=== PATIENT | female | born 1985 | race African-American/Black ===

== ENCOUNTER 2016-07-04 12:28 | Day surgery (SDC) | payer MEDICAID ==
[~2016-07-04 12:28] MED LIST: DIPHENHYDRAMINE HCL 50 MG/ML VIAL ONE; EPINEPHRINE INJ 1 MG/10 ML DISP.SYRIN ONE; FENTANYL CITRATE INJ/PF 100 MCG/2 ML AMPUL ONE; FLUMAZENIL INJ 0.5 MG/5 ML VIAL IV ONE; GLUCAGON,HUMAN RECOMB 1 MG INJ ONE; MIDAZOLAM 2 MG/2 ML INJ ONE; NALOXONE HCL INJ/PF 0.4 MG/1 ML SDV ONE; ONDANSETRON HCL INJ/PF 4 MG/2 ML SDV ONE; PROMETHAZINE HCL INJ 25 MG/1 ML VIAL ONE
[2016-07-04] MEDS: MIDAZOLAM 2 MG/2 ML INJ ONE ×2 (13:30→13:34)
[2016-07-04] MEDS: FENTANYL CITRATE INJ/PF 100 MCG/2 ML AMPUL ONE ×2 (13:32→13:36)
--- NOTE | 2016-07-04 13:44 | Operative Report ---
Operative Report DATE OF SURGERY: 07/04/16 Operative Report: The risks benefits and alternatives of the procedure explained to the patient in detail and informed consent is obtained that GIF Olympus video scope was inserted into the patient's mouth and hypopharynx the esophagus is identified intubated and insufflated the scope was then advanced through the esophagus stomach and duodenum retroflexion maneuver is done the esophagus stomach and first and second portions of the duodenum examined PREOPERATIVE DIAGNOSIS: Epigastric pain. Dysphagia POSTOPERATIVE DIAGNOSIS: Gastritis status post biopsy rule out Helicobacter pylori OPERATION: EGD with biopsy SURGEON: OMID JORDAN ANESTHESIA: Moderate Sedation - 4 mg of Versed, 75 g of fentanyl. Conscious sedation monitoring to 15 minutes. TISSUE REMOVED OR ALTERED: Gastric mucosal specimens obtained rule out Helicobacter pylori COMPLICATIONS: None. ESTIMATED BLOOD LOSS: none. INTRAOPERATIVE FINDINGS: As noted above. PROCEDURE: Patient tolerated the procedure well. No immediate postprocedure complications are noted. Patient is discharged in good condition. Discharge date 07/04/2016. Discharge diet: Regular. Discharge activity: Regular. 2-3 year follow-up to discuss findings. Patient is instructed to call the office or proceed to the emergency room should there be any further problems or questions. We'll await biopsies.
[2016-07-04 14:48] VITALS: BP 106/65
== END 2016-07-04 14:55 | disposition home or self-care (01) ==
LOC: END 12:28
PROVIDERS: ATTEND Internal Medicine Gastroenterology
PROC: 0DB68ZX Excision of Stomach, Via Natural or Artificial Opening Endoscopic, Diagnostic (ICD-10-PCS; principal; 2016-07-04 12:30)
DX: K21.9 Gastro-esophageal reflux disease without esophagitis (principal); K29.50 Unspecified chronic gastritis without bleeding; J30.1 Allergic rhinitis due to pollen; E66.9 Obesity, unspecified; Z68.30 Body mass index [BMI] 30.0-30.9, adult; Z79.899 Other long term (current) drug therapy
CPT/HCPCS: 43239; 88342 ×2; 88305 ×2; J2250; J3010; J0171; J1200; J1610; J2310; J2405; J2550; J3490

== ENCOUNTER → 2016-08-02 | Outpatient (CLI) | payer MEDICAID ==
[2016-08-02 10:58] LABS: HEMATOCRIT 36.6 % (36.0-47.0); HEMOGLOBIN 12.5 g/dL (12.0-15.5); HGB HCT DIFFERENCE 0.9; MEAN CORPUSCULAR HEMOGLOBIN 31.5 pg (27.0-33.4); MEAN CORPUSCULAR HGB CONC 34.1 g/dL (32.0-36.0); MEAN CORPUSCULAR VOLUME 93 fl (80-97); RED BLOOD COUNT 3.96 10^6/uL (3.72-5.28); RED CELL DISTRIBUTION WIDTH 12.7 % (11.5-14.0)
[2016-08-02 11:17] LABS: ALANINE AMINOTRANSFERASE 25 U/L (9-52); ALBUMIN 3.8 g/dL (3.5-5.0); ALKALINE PHOSPHATASE 40 U/L (38-126); ASPARTATE AMINO TRANSFERASE 16 U/L (14-36); BILIRUBIN,DIRECT 0.3 mg/dL (0.0-0.4); BILIRUBIN,TOTAL 0.6 mg/dL (0.2-1.3); CHOLESTEROL 116.89 mg/dL (0-200); Direct HDL 29 mg/dL (>40); TOTAL PROTEIN 6.6 g/dL (6.3-8.2); TRIGLYCERIDES 63 mg/dL (<150)
[2016-08-02 11:28] LABS: DIRECT LDL 70 mg/dL (<100)
[2016-08-02 12:23] LABS: ANION GAP 13 (5-19); BLOOD UREA NITROGEN 12 mg/dL (7-20); CARBON DIOXIDE 18 mmol/L (22-30); CHLORIDE 113 mmol/L (98-107); CREATININE RESULT 1.17 mg/dL (0.52-1.25); GLUCOSE 89 mg/dL (75-110); POTASSIUM 3.8 mmol/L (3.6-5.0); SODIUM 144.4 mmol/L (137-145)
== END ==
LOC: OD 09:42
PROVIDERS: ATTEND Internal Medicine Cardiovascular Disease
DX: R07.89 Other chest pain (principal); R00.2 Palpitations
CPT/HCPCS: 36415; 80048; 80061; 80076; 83735; 84439; 84443; 85027

== ENCOUNTER 2016-11-18 10:40 | Day surgery (SDC) | payer MEDICAID ==
[~2016-11-18 10:40] MED LIST changes: -DIPHENHYDRAMINE HCL 50 MG/ML VIAL ONE; -EPINEPHRINE INJ 1 MG/10 ML DISP.SYRIN ONE; -FENTANYL CITRATE INJ/PF 100 MCG/2 ML AMPUL ONE; -FLUMAZENIL INJ 0.5 MG/5 ML VIAL IV ONE; -GLUCAGON,HUMAN RECOMB 1 MG INJ ONE; -MIDAZOLAM 2 MG/2 ML INJ ONE; -NALOXONE HCL INJ/PF 0.4 MG/1 ML SDV ONE; -ONDANSETRON HCL INJ/PF 4 MG/2 ML SDV ONE; -PROMETHAZINE HCL INJ 25 MG/1 ML VIAL ONE; +PROPOFOL INJ 200 MG/20 ML VIAL IV ONE
[2016-11-18 12:34] VITALS: BP 105/64
--- NOTE | 2016-11-18 14:09 | Operative Report ---
Operative Report DATE OF SURGERY: 11/18/16 Operative Report: The risks, benefits and alternatives of the procedure including risks of bleeding, perforation requiring surgery are explained to the patient detail and informed consent obtained. Patient was placed in the left lateral decubital position. Timeout was called. Propofol medications administered. A rectal examination was done which did not reveal any masses, tears or fissures. An Olympus videoscope was inserted into the patient's rectum. The scope was then gradually advanced all the way to the cecum. The cecum was identified by the usual anatomical landmarks including the ileocecal valve as well as the appendiceal office. Photodocumentation was obtained. Prep was good. The scope was then sequentially pulled back via the various segments of the colon including the ascending colon, hepatic flexure, transverse colon, splenic flexure, descending colon and finally to the rectosigmoid portions of the colon. Retroflexion maneuver was performed. PREOPERATIVE DIAGNOSIS: Change of bowel habits POSTOPERATIVE DIAGNOSIS: Mild terminal ileitis status post biopsy. Internal hemorrhoids OPERATION: Colonoscopy with biopsy SURGEON: OMID JORDAN ANESTHESIA: LMAC TISSUE REMOVED OR ALTERED: As described above. COMPLICATIONS: None. ESTIMATED BLOOD LOSS: None. INTRAOPERATIVE FINDINGS: Nodular. Terminal ileitis status post biopsy rule out Crohn's disease PROCEDURE: Patient tolerated the procedure well. No immediate postprocedure complications are noted. Patient discharged in good condition. Discharge date 11/18/2016. Discharge diet: Regular. Discharge activity: Regular. 2-3 week follow-up to discuss findings. Patient is instructed to call the office or proceed to the emergency room should there be any further problems or questions. We will wait on pathology.
== END 2016-11-18 12:30 | disposition home or self-care (01) ==
LOC: END 10:40
PROVIDERS: ATTEND Internal Medicine Gastroenterology
PROC: 0DBB8ZX Excision of Ileum, Via Natural or Artificial Opening Endoscopic, Diagnostic (ICD-10-PCS; principal; 2016-11-18 12:30)
DX: K52.9 Noninfective gastroenteritis and colitis, unspecified (principal); K64.8 Other hemorrhoids; K21.9 Gastro-esophageal reflux disease without esophagitis; E66.9 Obesity, unspecified; G93.2 Benign intracranial hypertension; Z68.32 Body mass index [BMI] 32.0-32.9, adult; Z79.899 Other long term (current) drug therapy
CPT/HCPCS: 45380; 88305 ×2; J2704; 810

== ENCOUNTER → 2016-11-22 | Outpatient (CLI) | payer MEDICAID | LOC: OD 16:10 | PROVIDERS: ATTEND Internal Medicine Cardiovascular Disease | DX: N91.2 Amenorrhea, unspecified (principal) | CPT/HCPCS: 36415; 84703 ==

== ENCOUNTER → 2016-11-26 | Outpatient (CLI) | payer MEDICAID ==
--- NOTE | 2016-11-28 08:35 | RADIOLOGY REPORT ---
STRESS TEST REPORT PATIENT NAME: MARGIE SMITH ROOM#: DATE OF SERVICE: 11/26/2016 AGE: 31Y ORDER#: [id number] REFERRING MD: MUSA PRESLEY M.D. INDICATION: Assess chest pain. Chest pain reproduced on an EKG treadmill stress test, but no ST changes. CLINICAL HISTORY: This 41-year-old female with no known coronary artery disease is currently complaining of chest pain and chest tightness and chest pressure. Current symptomatology includes chest pain today. PROCEDURE PERFORMED: Rest/stress single-isotope Cardiolite SPECT imaging with exercise stress and gated SPECT imaging. REPORT The patient performed treadmill exercise using a standard Ed protocol completing 10 mets and an estimated work load of 11 mets. She exercised to a peak heart rate of 184, test terminated due to fatigue. The resting heart rate was 82 BPM and increased to 184 BPM at peak exercise, this is 92% of the maximum predicted heart rate. The blood pressure response to exercise was normal, resting blood pressure was 99/64, at peak exercise blood pressure was 128/55. The patient complained of right upper chest pains 1/5 in intensity prior to exercise. During exercise, her chest pain waxed and waned including going from the right upper chest to the center chest and then with some radiation into the left upper arm, but with continuing exercise and particularly at peak exercise, she had no chest pain complaint. Resting 12-lead EKG showed normal sinus rhythm at [address] changes are seen. At peak exercise, no abnormal ST changes were seen. Myocardial perfusion imaging was performed at rest 60 minutes following the injection of 12.97 mCi of Cardiolite. At peak exercise, the patient was injected with 37.7 mCi of Cardiolite. Gated post-stress tomographic imaging was performed 60 minutes after stress. FINDINGS: The overall quality of the study is good. Left ventricular cavity is noted to be normal in size in both the rest and stress studies. TID ratio was 0.93 and normal. Breast attenuation noted on both rest and stress images, attention correction software used. SPECT images showed no exercise-induced reversible ischemia in stress and rest images. No fixed perfusion defects either. Gated SPECT imaging showed normal motion contraction of all LV segments. Left ventricular ejection fraction was calculated to be 57%. IMPRESSION: Myocardial perfusion imaging is normal. Despite the patient's atypical waxing and waning chest pains in different locations from right upper chest to center retrosternal chest, there were no EKG changes to suggest myocardial ischemia. There is no evidence of exercise-induced reversible ischemia seen in the LV segments and no fixed perfusion defects. Overall left ventricular systolic function is normal at 57%. No regional wall motion abnormality was seen. No prior stress test for comparison. INTERPRETING PHYSICIAN: MUSA PRESLEY M.D. /: [id number] TT: [id number] ID: [id number] /: [id number] TD: 0930 JOB: [id number] cc:MUSA PRESLEY M.D. > MTDD
== END ==
LOC: RAD 06:20
PROVIDERS: ATTEND Internal Medicine Cardiovascular Disease
DX: R07.89 Other chest pain (principal)
CPT/HCPCS: 93017; 78452; A9500; Q9969

== ENCOUNTER 2017-11-04 07:03 | Day surgery (SDC) | payer MEDICAID ==
--- NOTE | 2017-10-28 22:11 | EKG REPORT ---
SEVERITY:- OTHERWISE NORMAL ECG - SINUS RHYTHM LEFT AXIS DEVIATION BORDERLINE T WAVE ABNORMALITIES : Confirmed by: Wilfrido Corbett 28-Oct-2017 22:10:44
[~2017-11-04 07:03] MED LIST changes: +LACTATED RINGERS 1000 ML IV PRN; +LIDOCAINE 0.5% INJ-PF (5 MG/ML) 50 ML SDV SUBCUT PRN; -PROPOFOL INJ 200 MG/20 ML VIAL IV ONE
[2017-11-04] MEDS ORDERED: FENTANYL CITRATE INJ/PF 100 MCG/2 ML AMPUL ONE (08:05)
[2017-11-04] MEDS ORDERED: LIDOCAINE 2% INJ-PF (20 MG/ML) 10 ML AMPUL ONE (08:05)
[2017-11-04] MEDS ORDERED: MIDAZOLAM 2 MG/2 ML INJ ONE (08:05)
[2017-11-04] MEDS ORDERED: ONDANSETRON HCL INJ/PF 4 MG/2 ML SDV ONE (08:06)
[2017-11-04] MEDS ORDERED: PROPOFOL INJ 200 MG/20 ML VIAL IV ONE (08:06)
[2017-11-04] MEDS ORDERED: PROMETHAZINE HCL INJ 25 MG/1 ML VIAL IV PRN ×2 (08:43)
[2017-11-04] MEDS ORDERED: MEPERIDINE HCL/PF INJ 25 MG/1 ML DISP.SYRIN IV PRN (08:43)
[2017-11-04] MEDS ORDERED: DIPHENHYDRAMINE HCL 50 MG/ML VIAL IV PRN (08:43)
[2017-11-04] MEDS ORDERED: ONDANSETRON HCL INJ/PF 4 MG/2 ML SDV IV PRN (08:43)
[2017-11-04] MEDS ORDERED: FENTANYL CITRATE INJ/PF 100 MCG/2 ML AMPUL IV PRN ×3 (08:43)
--- NOTE | 2017-11-04 08:47 | Discharge Summary ---
Discharge Summary (SDC) - Discharge Final Diagnosis: reflux, gastritis Date of Surgery: 11/04/17 Discharge Date: 11/04/17 Condition: Stable Referrals: ZEESHAN RODRIGUEZ DO [Primary Care Provider] - Discharge Diet: As Tolerated Respiratory Treatments at Home: Deep Breathing/Coughing, Incentive Spirometer Discharge Activity: Slowly Increase Activity Home Care Assistance: None Needed
--- NOTE | 2017-11-04 08:53 | Operative Report ---
Nonrecallable Operative Report DATE OF SURGERY: 11/04/17 PREOPERATIVE DIAGNOSIS: Reflux and abdominal pain POSTOPERATIVE DIAGNOSIS: 1. Mild gastritis. 2. No evidence of large hiatal hernia on EGD. OPERATION: EGD with biopsy SURGEON: ZACARIAS MILES ANESTHESIA: LMAC TISSUE REMOVED OR ALTERED: 1. Antrum. 2. Distal esophagus COMPLICATIONS: None apparent ESTIMATED BLOOD LOSS: Minimal PROCEDURE: Drains/implants: None. Procedure in detail: After informed consent was obtained, the patient was laid in the left lateral decubitus position. The endoscope was passed down the oropharynx, down the esophagus, and into the stomach. Immediately there was noted to be petechiae in the antrum. This was consistent with mild gastritis. Biopsy was taken in the antrum for pathology. The scope was pushed through the pylorus into the first and second portions of the duodenum. The duodenum appeared normal. The scope was pulled back into the gastric body. A retroflexion maneuver was performed. There was no evidence of a large hiatal hernia. The scope was then withdrawn into the distal esophagus. The Z line appeared normal. Biopsy was taken at the distal esophagus for pathologic examination. There was no significant ulceration within the distal esophagus. The scope was then pulled up the remainder of the esophagus. The esophagus was smooth in contour without masses, lesions, ulcerations, bleeding, or other abnormality. The scope was then removed from the patient's oropharynx, and the procedure was concluded. All sponge, instrument, and needle counts were correct 2. Condition: Stable.
[2017-11-04 10:56] VITALS: BP 107/65
== END 2017-11-04 09:55 | disposition home or self-care (01) ==
LOC: OROUT 07:03
PROVIDERS: ATTEND Surgery
DX: K29.50 Unspecified chronic gastritis without bleeding (principal); K21.0 Gastro-esophageal reflux disease with esophagitis; K44.9 Diaphragmatic hernia without obstruction or gangrene; G93.2 Benign intracranial hypertension; M79.7 Fibromyalgia; R00.2 Palpitations; Z88.1 Allergy status to other antibiotic agents; Z79.899 Other long term (current) drug therapy
CPT/HCPCS: 43239; 93005; 36415; 84132; 81025; 88342 ×2; 88305 ×2; 93010; J2250; J3010; J2405; J2704; J3490; 731

== ENCOUNTER → 2017-11-19 | Outpatient (CLI) | payer MEDICAID ==
--- NOTE | 2017-11-19 09:51 | RADIOLOGY REPORT (SQ) ---
EXAM DESCRIPTION: BARIUM SWALLOW ESOPHAGUS COMPLETED DATE/TIME: 11/19/2017 8:40 am REASON FOR STUDY: GERD (K21.9), DIAPHRAGMATIC HERNIA W/O OBSTRUCTION (K44.9) K21.9 GASTRO-ESOPHAGEA L REFLUX DISEASE WITHOUT ESOPHAGITIS K44.9 DIAPHRAGMATIC HERNIA WITHOUT OBSTRUCTION OR GANGRENE COMPARISON: None. TECHNIQUE: Under fluoroscopic guidance, patient ingested effervescent granules followed by thick and thin barium. Fluoroscopic spot images and routine radiographic images acquired and stored on PACS. 12 MM BARIUM TABLET GIVEN: Yes. No significant delay in passage. LIMITATIONS: None. FLUOROSCOPY TIME: FLUORO TIME: 1 minutes 5 seconds 6 series of digital images saved to PACS. FINDINGS: NEUROMUSCULAR COORDINATION OF SWALLOW: Normal. No aspiration. ESOPHAGEAL MOTILITY: Normal peristalsis. No esophageal spasm. ESOPHAGEAL MUCOSA: Normal mucosa without masses or ulceration. GASTRO-ESOPHAGEAL JUNCTION: Tiny sliding hiatal hernia. Unprovoked gastroesophageal reflux to the ce rvical esophagus. No distal esophageal stricture or mucosal abnormality NON-GI TRACT STRUCTURES: No significant finding. OTHER: No other significant finding. IMPRESSION: Small sliding hiatal hernia with gastroesophageal reflux COMMENT: Quality ID [id number]: Final reports for procedures using fluoroscopy that document radiation exp osure indices, or exposure time and number of fluorographic images (if radiation exposure indices are not available) TECHNICAL DOCUMENTATION: JOB ID: [id number] [employer]- All Rights Reserved Reading location - IP/workstation name: [email or web address]
== END ==
LOC: RAD 07:54
PROVIDERS: ATTEND Surgery
DX: K21.9 Gastro-esophageal reflux disease without esophagitis (principal); K44.9 Diaphragmatic hernia without obstruction or gangrene
CPT/HCPCS: 74220

== ENCOUNTER → 2018-08-20 | Outpatient (CLI) | payer MEDICAID ==
--- NOTE | 2018-08-21 11:39 | RADIOLOGY REPORT (SQ) ---
EXAM DESCRIPTION: NM THYROID SCAN AND UPTAKE COMPLETED DATE/TIME: 08/21/2018 10:34 am REASON FOR STUDY: THYROID NODULE E04.1 NONTOXIC SINGLE THYROID NODULE COMPARISON: None. RADIONUCLIDE AND DOSE: 308 microcuries [id number]. The route of agent administration: Oral and Intravenous ADDITIONAL DRUGS AND DOSES: None. TECHNIQUE: Iodine uptake was measured at 4 and 24 hours. Images of the neck were acquired. LIMITATIONS: None. FINDINGS: 4 HOUR UPTAKE RADIO-IODINE: 7%. Normal Range of 5-15% [facility] 24 HOUR UPTAKE RADIO-IODINE: 22.5%. Normal Range of 15-30% [facility] SCAN: Homogeneous uptake of the radionuclide throughout both lobes of the gland and isthmus without a reas of increased or decreased activity. Normal size. OTHER: No other significant finding. IMPRESSION: NORMAL RADIONUCLIDE SCAN OF THYROID GLAND. NORMAL UPTAKE OF IODINE. TECHNICAL DOCUMENTATION: JOB ID: [id number] [employer]- All Rights Reserved Reading location - IP/workstation name: [email or web address]
== END ==
LOC: RAD 07-27 14:21
PROVIDERS: ATTEND Family Medicine
DX: E04.1 Nontoxic single thyroid nodule (principal)
CPT/HCPCS: 78014; A9516